=== PATIENT | male | born 1990 | race Caucasian/White ===

== ENCOUNTER 2022-07-12 07:15 | Inpatient (IN) | payer OTHER ==
[~2022-07-12] VITALS: Ht 170.2 cm; Wt 101.2 kg
[2022-07-13 05:08] LABS: Bun/Creatinine Ratio 35.9 (12.0-20.0); Creatinine, Blood 0.98 mg/dL (0.60-1.20); Potassium, Blood 3.2 mmol/L (3.5-5.5)
[2022-07-13 05:33] LABS: Calcium, Blood 7.6 mg/dL (8.5-10.1)
--- NOTE | 2022-07-13 06:30 | NUR ---
ADMIT 0216, SEE DOWN TIME CHARTING
[2022-07-13 07:19] LABS: Hematocrit 24.6 % (37.0-53.0); Hemoglobin 8.5 g/dL (13.5-17.5)
--- NOTE | 2022-07-13 07:30 | NUR ---
ASSUMED CARE: PT SITTING UPRIGHT IN BED, ASKING FOR WATER. EXPLAINED THAT GI WILL BE CONSULTING DUE TO HIS HISTORY OF GI BLEEDING. A FEW SIPS OF WATER GIVEN WITH MEDS. CIWA SCORE OF 12 AT THIS TIME. HYPERTENSION NOTED. WILL DISCUSS WITH DAY DR. KUMAR IN S ON TELE. ON RA. D5 /2, OCTREOTIDE AND PROTONIX GTTS RUNNING THROUGH 3 DIFFERENT IVS. BED ALARM ON. NO ACUTE NEEDS AT THIS TIME.
--- NOTE | 2022-07-13 08:04 | NUR ---
CALL TO DR ARCE TO DISCUSS PT'S HYPERTENSION. TO PLACE NEW ORDERS.
[2022-07-13 08:19] LABS: BASOPHILS ABSOLUTE AUTO 0.01 K/mm3 (0.00-0.23); BASOPHILS PERCENT AUTO 0 % (0-2); EOSINOPHILS ABSOLUTE AUTO 0.15 K/mm3 (0.00-0.68); EOSINOPHILS PERCENT AUTO 3 % (0-6); Hematocrit 22.4 % (37.0-53.0); Hemoglobin 7.8 g/dL (13.5-17.5); IMMATURE GRAN ABSOLUTE AUTO 0.02 K/mm3 (0.00-0.10); IMMATURE GRAN PERCENT AUTO 0 % (0-1); LYMPHOCYTES ABSOLUTE AUTO 1.08 K/mm3 (0.84-5.20); LYMPHOCYTES PERCENT AUTO 20 % (21-46); MONOCYTES ABSOLUTE AUTO 0.54 K/mm3 (0.16-1.47); MONOCYTES PERCENT AUTO 10 % (4-13); Mean Corpuscular HGB 30.6 pg (26.0-34.0); Mean Corpuscular HGB Conc 34.8 g/dL (31.5-36.5); Mean Corpuscular Volume 88 fL (80-100); Mean Platelet Volume 9.7 fL (9.1-12.4); NEUTROPHILS ABSOLUTE AUTO 3.67 K/mm3 (1.96-9.15); NEUTROPHILS PERCENT AUTO 67 % (41-73); Platelet Count 187 K/mm3 (150-400); RDW Coefficient Variation 14.4 % (11.7-14.2); RDW Standard Deviation 45.4 fL (35.1-46.3); Red Blood Cell Count 2.55 M/mm3 (4.30-5.90); White Blood Cell Count 5.47 K/mm3 (4.00-11.30)
--- NOTE | 2022-07-13 10:42 | NUR ---
DR ARCE CAME TO CHECK IN ON PT. CALL TO DAY SURGERY WHO STATES PT IS ON ADD-ON SCHEDULE. DR ARCE STATES CLEAR LIQUIDS ARE OK AT THIS TIME UNTIL NOON. PT APPEARS TO BE RESTING QUIETLY AT THIS TIME. DR ARCE WISHES TO KEEP PT ICU STATUS UNTIL AFTER SCOPE DUE TO DECREASING H/H.
[2022-07-13 14:38] LABS: Hematocrit 19.2 % (37.0-53.0); Hemoglobin 6.6 g/dL (13.5-17.5)
--- NOTE | 2022-07-13 15:48 | NUR ---
CALL TO DR ARCE TO REPORT PT'S H/H DECREASE. ASSISTED PT BACK TO BED FROM COMMODE AFTER LARGE BOWEL MOVEMENT THAT APPEARED TO BE OLD BLOOD, MAROON COLORED. CALL TO DAY SURGERY WHO STATES PT IS ON ADD-ON LIST BUT THEY DO NOT KNOW WHAT TIME.
--- NOTE | 2022-07-13 17:08 | NUR ---
CALL TO DAY SURGERY WHO STATES PT IS NOT ON SCHEDULE AT THIS TIME. STATED DR PORTER IS AWARE OF PT. NPO EXCEPT SIPS. AWAITING UNIT PRBCS. MEDICATED WITH LIBRIUM AND ATIVAN X1 EACH THIS SHIFT. NO FURTHER NEEDS AT THIS TIME.
--- NOTE | 2022-07-13 19:15 | NUR ---
ASSUMPTION OF CARE PT IS RESTING WITH EYES CLOSED, WAKENS TO VERBAL STIMULI. HE IS A&OX4, ASKS ABOUT PLAN OF CARE AND UPDATED. HE IS RECEIVING PROTONIX GTT, OCTREOTIDE GTT, D5 1/2NS AT 75ML/HR AND CURRENTLY RECEIVING 1UNIT PRBCS. PT EXPRESSES FEELING ANXIOUS AND WORRIED ABOUT HIS OVERALL HEALTH. LUNGS ARE CLEAR. OCCASIONAL NONPRODUCTIVE COUGH. PT REPORTS FEELING THIRSTY BUT EDUCATED ABOUT IMPORTANCE OF NPO STATUS AND PT VERBALIZES UNDERSTANDING. PT DENIES NAUSEA. BOWEL TONES ACTIVE. ABDOMEN SOFT, NONTENDER. PT DENIES GI UPSET. PT STANDBY ASSIST TO BEDSIDE COMMODE AND HAS 900ML BRIGHT/DARK RED LIQUID OUTPUT. DR PORTER AT BEDSIDE DURING THIS TIME. PLAN FOR SCOPE TONIGHT. PT AGREEABLE TO PLAN. VSS. BED IN LOW POSITION, CALL LIGHT WITHIN REACH AND BED ALARM ON.
[2022-07-13 20:38] LABS: Hematocrit 20.8 % (37.0-53.0); Hemoglobin 7.3 g/dL (13.5-17.5)
--- NOTE | 2022-07-13 22:59 | NUR ---
EGD DR PORTER AND DAY SURGERY STAFF AT BEDSIDE FOR EGD. SEE SEDATION/MEDICATION FLOWSHEET FOR FURTHER INFORMATION. PT TOLERATED WELL. HE IS NOW AWAKE BUT DROWSY. PT EXPRESSES FEELING "FOGGY HEADED". REORIENTED TO ROOM AND EVENTS. PT HAS A STRONG DRY COUGH. BED IN LOW POSITION AND CALL LIGHT WITHIN REACH.
--- NOTE | 2022-07-13 23:07 | NUR ---
07/13/22 2301 Martínez Rangel LATE ENTRY FOR 2215. MONITOR INTACT WITH CONTINUOUS PULSE OXIMETRY AND INTERMITTENT BP. 3-LEAD EKG REVIEWED WITH PHYSICIAN PRIOR TO START OF PROCEDURE. O2 VIA POM INTACT THROUGHOUT SEDATION/PROCEDURE. Bite Block Placed. 2% LIDOCAINE SPRAYED TO BACK OF THROAT PRIOR TO PROCEDURE. History, Chart, Medications and Allergies reviewed before start of procedure.
--- NOTE | 2022-07-14 01:22 | NUR ---
UPDATE SINCE EGD, PT HAS DRY COUGH. HE STS HE FEELS LIKE THERE IS SOMETHING STUCK IN HIS CHEST. LUNGS ARE CLEAR THROUGHOUT. CHEST XRAY DONE TO RULE OUT ASPIRATION. XRAY REVIEWED BY HOSPITALIST, NO NEW ORDERS AT THIS TIME AND COUGHING HAS RESOLVED.
[2022-07-14 02:42] LABS: BASOPHILS ABSOLUTE AUTO 0.01 K/mm3 (0.00-0.23); BASOPHILS PERCENT AUTO 0 % (0-2); EOSINOPHILS PERCENT AUTO 5 % (0-6); Hematocrit 20.1 % (37.0-53.0); Hemoglobin 6.8 g/dL (13.5-17.5); IMMATURE GRAN ABSOLUTE AUTO 0.02 K/mm3 (0.00-0.10); IMMATURE GRAN PERCENT AUTO 1 % (0-1); LYMPHOCYTES ABSOLUTE AUTO 0.87 K/mm3 (0.84-5.20); LYMPHOCYTES PERCENT AUTO 20 % (21-46); MONOCYTES ABSOLUTE AUTO 0.32 K/mm3 (0.16-1.47); MONOCYTES PERCENT AUTO 7 % (4-13); Mean Corpuscular HGB 31.1 pg (26.0-34.0); Mean Corpuscular HGB Conc 33.8 g/dL (31.5-36.5); Mean Corpuscular Volume 92 fL (80-100); Mean Platelet Volume 9.9 fL (9.1-12.4); NEUTROPHILS ABSOLUTE AUTO 2.99 K/mm3 (1.96-9.15); NEUTROPHILS PERCENT AUTO 68 % (41-73); Platelet Count 149 K/mm3 (150-400); RDW Coefficient Variation 14.6 % (11.7-14.2); RDW Standard Deviation 48.4 fL (35.1-46.3); Red Blood Cell Count 2.19 M/mm3 (4.30-5.90); White Blood Cell Count 4.41 K/mm3 (4.00-11.30)
[2022-07-14 03:11] LABS: Albumin, Blood 2.3 g/dL (3.4-5.0); Albumin/Globulin Ratio 0.9 (0.8-1.8); Bilirubin, Total 0.5 mg/dL (0.1-1.0); Bun/Creatinine Ratio 15.3 (12.0-20.0); Calcium, Blood 7.9 mg/dL (8.5-10.1); Creatinine, Blood 1.31 mg/dL (0.60-1.20); Globulin, Blood 2.7 g/dL (2.2-4.0); Potassium, Blood 3.6 mmol/L (3.5-5.5)
--- NOTE | 2022-07-14 05:07 | NUR ---
SHIFT SUMMARY PT IS A&OX3 AND DROWSY. HE WAKENS TO VERBAL STIMULI AND BECOMES ANXIOUS AT TIMES. HE VERBALIZES CONCERNS ABOUT DYING. PT CALMS WITH REORIENTATION. CIWA SCORES 7-11 AND MEDICATED PER EMAR. LUNGS ARE CLEAR THROUGHOUT. HE IS ON RA WITH SPO2 >95%. BOWEL TONES HYPOACTIVE, ABDOMEN SOFT. PT DENIES GI UPSET OR TENDERNESS. PT HAS HAD 1 EPISODE OF BLOODY STOOL THIS SHIFT. PT USES URINAL TO VOID WITH 300ML PALE YELLOW URINE OUTPUT. HE IS RECEIVING 1 UNIT PRBCS AT THIS TIME. VSS THROUGHOUT SHIFT. BED IN LOW POSITION, CALL LIGHT WITHIN REACH AND BED ALARM ON.
[2022-07-14 08:48] LABS: Hematocrit 22.2 % (37.0-53.0); Hemoglobin 7.9 g/dL (13.5-17.5)
[2022-07-14 15:16] LABS: Hematocrit 22.7 % (37.0-53.0); Hemoglobin 7.9 g/dL (13.5-17.5)
--- NOTE | 2022-07-14 17:30 | NUR ---
END OF SHIFT SUMMARY NEURO: A/O, DROWSY AFTER BEING MEDICATED. CIWA 9 CARDIAC: SR, BP ELEVATED. PRN HYDRALIZINE GIVEN X1 FOR SBP > 170. RESP: ROOM AIR, LUNGS CTA, SPO2 > 95% GI: NPO, SIPS OF WATER WITH MEDS. DENIES NAUSEA, NO VOMITING. NO STOOLS. : VOIDS, 1400ML CLEAR YELLOW URINE OUT THIS SHIFT. SKIN: INTACT/UNCHANGES. IV: POWERGLIDE TO RIGHT UPPER ARM, WITHDRAWS BLOOD WELL. PIV TO LEFT AC, SL, FLUSHES WELL. NO FAMILY AT BEDSIDE, UPDATE PROVIDED VIA PHONE TO PT'S MOTHER WITH HIS PERMISSION (LEONEL FLOWERS [phone]). NO DROP IN H/H SINCE 1 UNIT PRBC'S DURING THE PREVIOUS SHIFT, DR. ARCE NOTIFIED. ORDERS RECEIVED TO TRANSFER TO MEDICAL FLOOR, NO TELE. REPORT GIVEN TO [facility]ER[facility]. 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
[2022-07-14 20:42] LABS: Hematocrit 22.1 % (37.0-53.0); Hemoglobin 7.8 g/dL (13.5-17.5)
[2022-07-15 05:37] LABS: BASOPHILS ABSOLUTE AUTO 0.01 K/mm3 (0.00-0.23); BASOPHILS PERCENT AUTO 0 % (0-2); EOSINOPHILS ABSOLUTE AUTO 0.16 K/mm3 (0.00-0.68); EOSINOPHILS PERCENT AUTO 4 % (0-6); Hematocrit 22.3 % (37.0-53.0); Hemoglobin 7.6 g/dL (13.5-17.5); IMMATURE GRAN ABSOLUTE AUTO 0.02 K/mm3 (0.00-0.10); IMMATURE GRAN PERCENT AUTO 1 % (0-1); LYMPHOCYTES ABSOLUTE AUTO 0.93 K/mm3 (0.84-5.20); LYMPHOCYTES PERCENT AUTO 22 % (21-46); MONOCYTES ABSOLUTE AUTO 0.36 K/mm3 (0.16-1.47); MONOCYTES PERCENT AUTO 8 % (4-13); Mean Corpuscular HGB 31.1 pg (26.0-34.0); Mean Corpuscular HGB Conc 34.1 g/dL (31.5-36.5); Mean Corpuscular Volume 91 fL (80-100); Mean Platelet Volume 9.8 fL (9.1-12.4); NEUTROPHILS ABSOLUTE AUTO 2.83 K/mm3 (1.96-9.15); NEUTROPHILS PERCENT AUTO 66 % (41-73); Platelet Count 142 K/mm3 (150-400); RDW Coefficient Variation 14.2 % (11.7-14.2); RDW Standard Deviation 46.9 fL (35.1-46.3); Red Blood Cell Count 2.44 M/mm3 (4.30-5.90); White Blood Cell Count 4.31 K/mm3 (4.00-11.30)
--- NOTE | 2022-07-15 06:27 | NUR ---
A/OX4; CALM AND COOPERATIVE. C/O INSOMNIA; PRN MELATONIN (3MG) ORDERED AND GIVEN; MINIMAL EFFECT PER PATIENT. SBA TO BR. TOLERATING CLEAR LIQUID DIET (WATER /ICE ONLY AFTER 0600). IVF PER ORDERS TO RUE POWERGLIDE. BED ALARM SET. CALL LIGHT IN REACH; ENCOURAGED TO MAKE NEEDS KNOWN.
[2022-07-15 06:33] LABS: Albumin, Blood 2.3 g/dL (3.4-5.0); Albumin/Globulin Ratio 0.7 (0.8-1.8); Bilirubin, Total 0.5 mg/dL (0.1-1.0); Bun/Creatinine Ratio 7.6 (12.0-20.0); Calcium, Blood 8.2 mg/dL (8.5-10.1); Creatinine, Blood 1.31 mg/dL (0.60-1.20); Globulin, Blood 3.2 g/dL (2.2-4.0); Potassium, Blood 3.4 mmol/L (3.5-5.5); Total Protein, Blood 5.5 g/dL (6.4-8.2)
[2022-07-15 13:14] LABS: Hematocrit 25.4 % (37.0-53.0); Hemoglobin 8.9 g/dL (13.5-17.5)
--- NOTE | 2022-07-15 18:27 | NUR ---
SHIFT SUMMARY PT A&OX4 AND IN PLEASENT MOOD T/O SHIFT. ICE NPO SINCE APPROX 1630 PETRE NOTIFIED, SURG JUST CALLED AND PLAN TO GET PT NOW FOR COLONOSCOPY. HTN NOTED, MEDICATED W/ HYDRALAZINE. PT FINISHED BOWEL PREP, BOWEL MOVEMENTS CURRENTLY DARK YELLOW GERMAN NOTIFIED. CALL LIGHT W/IN REACH. CIWA 6 MEDICATED ONCE W/ ATIVAN T/O SHIFT.
--- NOTE | 2022-07-15 18:45 | NUR ---
PT TO COLONOSCOPY AT THIS TIME.
--- NOTE | 2022-07-15 19:07 | NUR ---
PT HAS POWERGLIDE TO RIGHT UPPER ARM THAT FLUSHES WELL AND FLOWS TO GRAVITY.
--- NOTE | 2022-07-15 19:21 | NUR ---
07/15/221920 Christopher Rangel HISTORY, CHART, MEDICATIONS AND ALLERGIES REVIEWED BEFORE START OF PROCEDURE. PATIENT CONFIRMS NPO STATUS AND AGREES WITH SCHEDULED PROCEDURE. 3-LEAD EKG REVIEWED WITH PHYSICIAN PRIOR TO START OF PROCEDURE. MONITOR INTACT WITH CONTINUOUS PULSE OXIMETRY,CAPNOGRAPHY, 3-LEAD EKG, INTERMITTENT BP. SUPPLEMENTAL O2 TO BE TITRATED THROUGHOUT PROCEDURE TO MAINTAIN O2 SATURATION ABOVE 90%. PATIENT DETERMINED TO BE ASA APPROPRIATE FOR PROPOFOL SEDATION PRIOR TO START OF PROCEDURE BY DR. PORTER.
[2022-07-16 09:48] LABS: BASOPHILS ABSOLUTE AUTO 0.02 K/mm3 (0.00-0.23); BASOPHILS PERCENT AUTO 0 % (0-2); EOSINOPHILS ABSOLUTE AUTO 0.17 K/mm3 (0.00-0.68); EOSINOPHILS PERCENT AUTO 3 % (0-6); Hematocrit 24.2 % (37.0-53.0); Hemoglobin 8.4 g/dL (13.5-17.5); IMMATURE GRAN ABSOLUTE AUTO 0.05 K/mm3 (0.00-0.10); IMMATURE GRAN PERCENT AUTO 1 % (0-1); LYMPHOCYTES PERCENT AUTO 18 % (21-46); MONOCYTES ABSOLUTE AUTO 0.42 K/mm3 (0.16-1.47); MONOCYTES PERCENT AUTO 8 % (4-13); Mean Corpuscular HGB 32.1 pg (26.0-34.0); Mean Corpuscular HGB Conc 34.7 g/dL (31.5-36.5); Mean Corpuscular Volume 92 fL (80-100); Mean Platelet Volume 10.2 fL (9.1-12.4); NEUTROPHILS ABSOLUTE AUTO 3.85 K/mm3 (1.96-9.15); NEUTROPHILS PERCENT AUTO 70 % (41-73); Platelet Count 203 K/mm3 (150-400); RDW Coefficient Variation 14.5 % (11.7-14.2); RDW Standard Deviation 47.8 fL (35.1-46.3); Red Blood Cell Count 2.62 M/mm3 (4.30-5.90); White Blood Cell Count 5.51 K/mm3 (4.00-11.30)
[2022-07-16 09:59] LABS: Bun/Creatinine Ratio 8.1 (12.0-20.0); Calcium, Blood 8.5 mg/dL (8.5-10.1); Creatinine, Blood 1.24 mg/dL (0.60-1.20); Potassium, Blood 3.6 mmol/L (3.5-5.5)
[2022-07-16] MEDS ORDERED: AMLO10 PO (10:58)
[2022-07-16] MEDS ORDERED: CARV6.25 PO (10:58)
--- NOTE | 2022-07-16 11:17 | NUR ---
DISCHARGE SUMMARY DISCHARGE, FOLLOWUP, AND MEDICATION INSTRUCTIONS GIVEN TO PT. PT VOICED COMPLETE UNDERSTANDING AND HAS NO QUESTIONS AT THIS TIME. PT INFORMED OF THE NEED TO ESTABLISH CARE WITH PCP. TRANSPORTATION SET UP, AWAITING ARRIVAL. POWERGLIDE REMOVED WITH CATHETER TIP INTACT. WILL CONTINUE TO MONITOR UNTIL PATIENT LEAVES. CALL LIGHT WITHIN REACH.
== END 2022-07-16 13:12 | disposition home or self-care (01) | DRG 394 ==
LOC: ICUE 07:15 → ICUW 07-13 07:19 → ICUE 07-13 07:19 → MEDS 07-14 07:24 → ICUE 07-14 07:24 → MEDS 07-14 17:47 → ENPENDDIS 07-16 10:54 → MEDS 07-16 13:12
PROVIDERS: Internal Medicine; ADMIT Internal Medicine
PROC: 30233N1 Transfusion of Nonautologous Red Blood Cells into Peripheral Vein, Percutaneous Approach (ICD-10-PCS; 2022-07-13)
PROC: 0DJ08ZZ Inspection of Upper Intestinal Tract, Via Natural or Artificial Opening Endoscopic (ICD-10-PCS; principal; 2022-07-14)
PROC: 0DBK8ZZ Excision of Ascending Colon, Via Natural or Artificial Opening Endoscopic (ICD-10-PCS; 2022-07-16)
PROC: 0DBH8ZZ Excision of Cecum, Via Natural or Artificial Opening Endoscopic (ICD-10-PCS; 2022-07-16)
DX: K64.8 Other hemorrhoids (principal); D62 Acute posthemorrhagic anemia; F10.239 Alcohol dependence with withdrawal, unspecified; N17.9 Acute kidney failure, unspecified; I10 Essential (primary) hypertension; E87.6 Hypokalemia; K63.5 Polyp of colon; K52.9 Noninfective gastroenteritis and colitis, unspecified; Z87.891 Personal history of nicotine dependence; Z91.018 Allergy to other foods
CPT/HCPCS: 36415; 36430; 71045; 80048; 80053; 85014; 85018; 85025; 86850; 86900; 86901; 86923; 96366; 96375; 96376; A9270; C1751; C9113; G0378; J0171; J0360; J1430; J2060; J2250; J2354; J2704; J3411; J7030; J7042; J7050; J7120; P9016